=== PATIENT | female | born 1940 | race Caucasian/White ===

== ENCOUNTER 2016-08-12 10:49 | Emergency (ER) | payer OTHER, MEDICARE ==
[2016-08-12 11:13] VITALS: BMI 26.6
[2016-08-12] MEDS ORDERED: SODIUM CHLORIDE 0.9% 1000 ML INFUS.BAG IV ONE (11:16)
--- NOTE | 2016-08-12 11:27 | PDOC ---
History of Present Illness - General Chief Complaint: Lightheaded Stated Complaint: LIGHTHEADED FOR 3 DAYS AFTER HAVING CAT SCAN WITH Time Seen by Provider: 08/12/16 11:13 Past History - Past Medical History Allergies/Adverse Reactions: Allergies Allergy/AdvReac Type Severity Reaction Status Date / Time formaldehyde Allergy Intermediate Hives Verified 08/12/16 10:53 BIRD FEATHERS Allergy Intermediate Uncoded 08/12/16 10:56 CATS Allergy Intermediate Hives Uncoded 08/12/16 10:55 SEAFOOD Allergy Intermediate Hives Uncoded 08/12/16 10:55 Home Medications: Ambulatory Orders Warfarin Sodium [Coumadin] 2.5 mg PO DAILY 09/15/13 Multivitamin [Multi Vitamin Daily] 1 each PO DAILY tablet 09/21/13 Biotin 2,500 mcg PO 2 daily capsule 09/16/14 Cholecalciferol (Vitamin D3) [Vitamin D3] 1,000 unit PO DAILY tablet 09/16/14 Glucosamine/Chondro Mohan A [Cosamin Ds Tablet] 2 each PO DAILY tablet 09/16/14 Cephalexin Monohydrate [Keflex -] 500 mg PO Q8H #21 capsule 08/12/16 Cardiac Disorders: Yes (MECHANICAL VALVE,COARCTATION OF AORTA,AORTIC ANEURYSM) HTN: Yes Other medical history: blind in left eye - Surgical History Cardiac Surgery: Yes (VALVE,AORTA) - Psycho/Social/Smoking Cessation Hx Anxiety: No Suicidal Ideation: No Smoking History: Never smoked Information on smoking cessation initiated: No Hx Alcohol Use: Yes (wine daily) Drug/Substance Use Hx: No Substance Use Type: Alcohol Review of Systems - Review of Systems Constitutional: No: Chills, Diaphoresis, Fever HEENTM: No: Eye Pain Respiratory: No: Cough, Orthopnea, Shortness of Breath Cardiac (ROS): Yes: Lightheadedness. No: Chest Pain, Edema, Irregular Heart Rate, Palpitations ABD/GI: Yes: Nausea. No: Abdominal Distended, Diarrhea, Poor Appetite, Poor Fluid Intake, Rectal Bleeding : No: Burning, Dysuria, Discharge Musculoskeletal: No: Back Pain All Other Systems: Reviewed and Negative *Physical Exam - Vital Signs Last Vital Signs Temp Pulse Resp BP Pulse Ox 98.3 F 104 H 16 126/69 95 08/12/16 10:50 08/12/16 10:50 08/12/16 10:50 08/12/16 10:50 08/12/16 10:50 - Physical Exam General Appearance: Yes: Nourished, Appropriately Dressed. No: Apparent Distress HEENT: positive: SHOAIB, Normal Voice Respiratory/Chest: positive: Chest Tender, Lungs Clear. negative: Normal Breath Sounds, Respiratory Distress Cardiovascular: positive: Regular Rhythm, Regular Rate, S1, S2. negative: Edema , JVD, Murmur Gastrointestinal/Abdominal: positive: Normal Bowel Sounds, Flat, Soft. negative : Tender, Guarding, Tenderness Musculoskeletal: positive: Normal Inspection. negative: CVA Tenderness Extremity: positive: Normal Capillary Refill, Normal Inspection, Normal Range of Motion. negative: Pedal Edema, Swelling Integumentary: positive: Normal Color, Dry, Warm. 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 cant visualize) 08/12/16 11:27 left axis, TWI I, AVL. LVH. LBBB ( old) - ECG Intrepretation Rhythm: Regular Rhythm ED Treatment Course - LABORATORY CBC & Chemistry Diagram: 08/12/16 11:25 08/12/16 11:25 - RADIOLOGY Radiology Studies Ordered: Category Date Time Status CHEST PA & LAT [RAD] Stat Radiology 08/12/16 11:16 Ordered Medical Decision Making - Medical Decision Making 08/12/16 11:22 76 yo F with ho HTN, ( jesús coarct aorta) s/p aortic repair years ago and AVR on coumadin, here today c/o feeling lighteaded. pt states had a ct angio coronaries last week and has been feeling lightheaded ever since. no v, mild nausea yesterday. no cp no sob. no vertigo. describes feeling lightheaded wtih standing improves with sitting down. no f/c no urinary complaints. no palpitations. been eating ok. no new medicaton changes. on lisinopril/ hctz, and coumadin. 08/12/16 11:27 76 yo F with h/o aortic repair for anuerysm, aortic valve replacement and coarc aorta, on coumadin with lightheadedness. differential: renal failure secondary to ct contrast. coagulapathy from coumadin, anemia, electrolyte abnormality dehydration . plan d/w pt polysomnographer if able to reach. dr Randy gambino., labs ekg cbc pt/ ptt iv hydration reassess. 08/12/16 13:32 pt with elevated WBC 22, no prior known luekocytosis. no fever to suggest infection. no cough congestion or resp symptoms. no cp or sob. no urinary symptoms mild luek esterase in urine. noel culture urine and start on keflex. pt informed will need repeat WBC and close followup. Dr Loc dumont, ( covering for Yeny Murillo) awaiting call back) *DC/Admit/Observation/Transfer Diagnosis at time of Disposition: Lightheadedness, Urinary tract infection, Leukocytosis - Discharge Dispostion Disposition: HOME Condition at time of disposition: Stable Admit: No - Prescriptions Prescriptions: Cephalexin Monohydrate [Keflex -] 500 mg PO Q8H #21 capsule - Referrals Referrals: August Copeland MD [Staff Physician] - - Patient Instructions Printed Discharge Instructions: DI for Leukocytosis, Urinary Tract Infection Additional Instructions: follow up wtih DR Murillo this week. call tomorrow to schedule. return for any feelings of chest pain, shortness of breath, fever or any concerns. you will need a repeat blood test for elevated WBC count of 22. you should also have your coumadin ( INR) checked again as the antiobiotic will affect metabolism of the coumadin. take keflex 500 mg three times daily x 7 days.
[2016-08-12 11:50] LABS: MCH 29.5 pg (25.7-33.7); MEAN CELL VOLUME 86.6 fl (80-96); MEAN PLT VOLUME 8.3 fl (7.5-11.1); PLATELET COUNT 402 K/MM3 (134-434); RDW 13.1 % (11.6-15.6); WHITE BLOOD COUNT 22.4 K/mm3 (4.0-10.8)
[2016-08-12 11:54] LABS: ALBUMIN 3.4 g/dl (3.5-5.0); ALK PHOS 49 U/L (32-92); ANION GAP 11 (8-16); BILIRUBIN,TOTAL 0.9 mg/dl (0.2-1.0); CALCIUM 9.5 mg/dl (8.4-10.2); CO2 27 mmol/L (22-28); GLUCOSE,RANDOM 125 mg/dl (74-106); SGOT/AST 19 U/L (10-42); SGPT/ALT 14 U/L (10-40); TOT PROT 6.5 g/dl (6.4-8.3)
[2016-08-12 12:08] LABS: ACTIVATED PTT 27.7 SECONDS (24.0-38.9)
[2016-08-12 12:12] LABS: INR 2.64 (0.82-1.09)
[2016-08-12 12:33] LABS: URINE APPEARANCE Clear; URINE BILIRUBIN Negative (NEGATIVE); URINE BLOOD Trace-intact (NEGATIVE); URINE GLUCOSE (UA) Negative (NEGATIVE); URINE KETONE 1+ (NEGATIVE); URINE NITRITE Negative (NEGATIVE); URINE UROBILINOGEN 1.0 E.U/dl (0.2-1.0)
[2016-08-12 12:55] LABS: URINE COLOR YELLOW; URINE LEUK ESTERASE TRACE (NEGATIVE); URINE PROTEIN 1+ (NEGATIVE)
[2016-08-12] MEDS ORDERED: CEPHALEXIN MONOHYDRATE 500 MG CAPSULE (UD) PO ONE (13:34)
[2016-08-12 13:52] LABS: PLATELET ESTIMATE SLT INCREASED (NORMAL)
[2016-08-12 13:53] LABS: URINE BACTERIA RARE /hpf (NEGATIVE); URINE RBC 0-2 /hpf (0-3)
[2016-08-12] MEDS ORDERED: CEPHALEXIN MONOHYDRATE 500 MG CAPSULE (UD) ONE (14:04)
[2016-08-12 14:14] VITALS: BP 121/69; PULSE 83; TEMP 98.6
--- NOTE | 2016-08-12 16:24 | EKG ---
Test Reason : Blood Pressure : / mmHG Vent. Rate : 092 BPM Atrial Rate : 092 BPM P-R Int : 208 ms QRS Dur : 130 ms QT Int : 388 ms P-R-T Axes : 072 -56 088 degrees QTc Int : 479 ms NORMAL SINUS RHYTHM LEFT AXIS DEVIATION LEFT VENTRICULAR HYPERTROPHY WITH QRS WIDENING AND REPOLARIZATION ABNORMALITY CANNOT RULE OUT ANTEROSEPTAL INFARCT , AGE UNDETERMINED ABNORMAL ECG NO PREVIOUS ECGS AVAILABLE Confirmed by SALOME DAVE, MARKO ([id number]) on 08/12/2016 4:24:31 PM Referred By: DAGO VÁSQUEZ Confirmed By:MARKO MCMAHON MD
== END 2016-08-12 14:38 | disposition home or self-care (01) ==
LOC: FER 10:49
DX: R42 Dizziness and giddiness (principal); N39.0 Urinary tract infection, site not specified; D72.829 Elevated white blood cell count, unspecified; I10 Essential (primary) hypertension; H54.42 Blindness, left eye, normal vision right eye; I51.9 Heart disease, unspecified
CPT/HCPCS: 36415; 71020-TC; 80053; 81003; 81015; 85025; 85610; 85730; 87040; 87086; 93005; 99284-25

== ENCOUNTER 2018-07-03 11:03 | Emergency (ER) | payer OTHER, MEDICARE ==
[2018-07-03 11:24] VITALS: TEMP 98; BMI 25.5
--- NOTE | 2018-07-03 11:36 | PDOC ---
History of Present Illness - General Chief Complaint: Hemoptysis Stated Complaint: COUGHING UP BLOOD Time Seen by Provider: 07/03/18 11:34 History Source: Patient Exam Limitations: No Limitations - History of Present Illness Initial Comments: 07/03/18 11:36 78y hx of htn, afib, sp mecanical valve replacement, AAA repair on coumadin presents with complaint of hemopyysis. Patient was in her usual state of health until this morning when she coughed up a blood clot. pt denies any other assciated symptoms including sob, cough, carlton, cp, leg swelling, n/v, abd pain, back pain, lightheadedness, frequent bleeding, bpr, melena. Pt has been having her INR checked and was found to be elevated recently to 4.5 and had her coumadin level changed via her PMD. pt denies any recent changes inher diet or new med changes beside the coumadin change. PMD: Dr Gray Past History - Past Medical History Allergies/Adverse Reactions: Allergies Allergy/AdvReac Type Severity Reaction Status Date / Time formaldehyde Allergy Intermediate Hives Verified 07/03/18 11:05 BIRD FEATHERS Allergy Intermediate Uncoded 07/03/18 11:05 CATS Allergy Intermediate Hives Uncoded 07/03/18 11:05 SEAFOOD Allergy Intermediate Hives Uncoded 07/03/18 11:05 Home Medications: Ambulatory Orders Multivitamin [Multi Vitamin Daily] 1 each PO DAILY tablet 09/21/13 Cholecalciferol (Vitamin D3) [Vitamin D3] 1,000 unit PO DAILY tablet 09/16/14 Glucosamine/Chondro Mohan A [Cosamin Ds Tablet] 2 each PO DAILY tablet 09/16/14 Warfarin Sodium [Coumadin] 2.5 mg PO DAILY 07/03/18 Cardiac Disorders: Yes (MECHANICAL VALVE,COARCTATION OF AORTA,AORTIC ANEURYSM) COPD: No HTN: Yes - Surgical History Cardiac Surgery: Yes (VALVE,AORTA) - Suicide/Smoking/Psychosocial Hx Smoking History: Never smoked Information on smoking cessation initiated: No Hx Alcohol Use: No Drug/Substance Use Hx: No Substance Use Type: Alcohol Review of Systems - Review of Systems Able to Perform ROS?: Yes Comments:: 07/03/18 12:05 Constitutional - no reported Fever, Chills, HEENT: no reported vision changes, sore throat Respiratory: + hemopytiss no reported cough, sob, Cardiac: no reported chest pain, palpitations, light headedness, leg swelling Abd/GI: no reported abd pain, nausea, vomiting, blood per rectum, melena, diarrhea : no reported dysuria, frequency, discharge Musculskelatal - no reported back pain, joint swelling skin - no reported bruising, erythema, rash neurological: no reported headache, numbness, focal weakness, tingling, ataxia, hematologic: no reported easy bruising, easy bleeding *Physical Exam - Vital Signs Last Vital Signs Temp Pulse Resp BP Pulse Ox 98 F 108 H 16 163/97 98 07/03/18 11:04 07/03/18 11:04 07/03/18 11:04 07/03/18 11:04 07/03/18 11:04 - Physical Exam Comments: 07/03/18 12:05 GENERAL: The patient is awake, alert, and fully oriented, Nontoxic - in no acute distress. HEAD: Normocephalic, atraumatic. EYES: extraocular movements intact, sclera anicteric, conjunctiva clear. ENT: Normal voice, Moist mucous membranes. NECK: Normal range of motion, supple LUNGS: Breath sounds equal, clear to auscultation bilaterally. No wheezes, no rhonchi, no rales. HEART: Regular rate and rhythm, click on asuculatation ABDOMEN: Soft, nontender, normoactive bowel sounds. No guarding, no rebound. . No CVA tenderness EXTREMITIES: Normal range of motion, no edema. No clubbing or cyanosis. No cords, erythema, or tenderness. NEUROLOGICAL: No facial assymetry, Normal speech, PSYCH: Normal mood, normal affect. SKIN: Warm, Dry, normal turgor, Heart Score/ECG Review - ECG Impressions Comment:: 07/03/18 12:07 Twelve-lead EKG was performed and reviewed by me. There is normal sinus rhythm with a normal rate. rate of 88 1s tdegere av block left axis devaition LBBB ED Treatment Course - LABORATORY CBC & Chemistry Diagram: 07/03/18 12:01 07/03/18 12:01 Medical Decision Making - Medical Decision Making 07/03/18 12:09 heymptysis possily secondary to elevated INR no other respiraotory or cardiac symptoms will obtani labs, repeat INR, cxr, ekg will reassess and carol gray 07/03/18 13:18 pts cxr clear labs reviewed INR therapeutic pt remains asymptomatic will carol gray 07/03/18 15:33 r/o 07/03/18 15:50 ct nnegative pt feels well no further episodes of hemoptysis pt asypmtromana currently will have her fu with pmd for inr check I discussed the physical exam findings, ancillary test results and final diagnoses with the patient. I answered all of the patient's questions. The patient was satisfied with the care received and felt comfortable with the discharge plan and treatment plan. The patient will call their primary care physician within 24 hours to arrange follow-up and will return to the Emergency Department with any new, persistent or worsening symptoms. *DC/Admit/Observation/Transfer Diagnosis at time of Disposition: Hemoptysis, Long-term (current) use of anticoagulants, INR goal 2.5-3.5 - Discharge Dispostion Disposition: HOME Condition at time of disposition: Improved Decision to Admit order: No - Referrals Referrals: Krzysztof Randall MD [Primary Care Provider] - - Patient Instructions Printed Discharge Instructions: DI for Hemoptysis Additional Instructions: I suspect you rcough may be related to your elevated INR. Your xray was normal. If you have any chest pain, shortness of breath or further bleeding please return to the Emergency Department for further evaluation. Print Language: DANISH - Post Discharge Activity
[2018-07-03 12:10] LABS: BASO % 0.4 % (0-2.0); EOS % 1.2 % (0-4.5); HEMATOCRIT 40.7 % (32.4-45.2); HEMOGLOBIN 13.5 GM/dl (10.7-15.3); LYMPH % 29.7 % (8-40); MCH 29.5 pg (25.7-33.7); MCHC 33.1 g/dl (32.0-36.0); MEAN PLT VOLUME 7.8 fl (7.5-11.1); MONO % 4.9 % (3.8-10.2); NEUT % 63.8 % (42.8-82.8); PLATELET COUNT 329 K/MM3 (134-434); RBC 4.57 M/mm3 (3.60-5.2); RDW 13.9 % (11.6-15.6); WHITE BLOOD COUNT 9.1 K/mm3 (4.0-10.8)
[2018-07-03 12:15] LABS: INR 2.73 (0.82-1.09)
[2018-07-03 12:19] LABS: ALBUMIN 3.7 g/dl (3.4-5.0); ALK PHOS 61 U/L (45-117); ANION GAP 8 MMOL/L (8-16); BILIRUBIN,TOTAL 0.6 mg/dl (0.2-1); BLOOD UREA NITROGEN 26 mg/dl (7-18); CALCIUM 9.2 mg/dl (8.5-10); CHLORIDE 101 mmol/L (98-107); CO2 26 mmol/L (21-32); CREATININE 0.8 mg/dl (0.55-1.3); GLUCOSE,RANDOM 116 mg/dl (74-106); POTASSIUM 3.6 mmol/L (3.5-5.1); SGOT/AST 23 U/L (15-37); SGPT/ALT 13 U/L (13-61); SODIUM 135 mmol/L (136-145); TOT PROT 7.2 g/dl (6.4-8.2)
[2018-07-03 13:26] LABS: N-TERMINAL BNP 715.8 pg/ml (5-450)
[2018-07-03] MEDS ORDERED: SODIUM CHLORIDE 500 ML IV STA (13:48)
[2018-07-03 15:49] VITALS: BP 151/80; PULSE 80
--- NOTE | 2018-07-04 11:29 | EKG ---
Test Reason : Blood Pressure : / mmHG Vent. Rate : 088 BPM Atrial Rate : 088 BPM P-R Int : 220 ms QRS Dur : 128 ms QT Int : 422 ms P-R-T Axes : 085 -50 087 degrees QTc Int : 510 ms SINUS RHYTHM WITH 1ST DEGREE A-V BLOCK LEFT AXIS DEVIATION LEFT BUNDLE BRANCH BLOCK ABNORMAL ECG Confirmed by ANISH VALVERDE MD ([id number]) on 07/04/2018 11:29:16 AM Referred By: GLENNA METCALF Confirmed By:ANISH VALVERDE MD
== END 2018-07-03 16:07 | disposition home or self-care (01) ==
LOC: FER 11:03
PROC: 3E0337Z Introduction of Electrolytic and Water Balance Substance into Peripheral Vein, Percutaneous Approach (ICD-10-PCS; principal; 2018-07-03)
DX: R04.2 Hemoptysis (principal); Z79.01 Long term (current) use of anticoagulants; I10 Essential (primary) hypertension; I71.9 Aortic aneurysm of unspecified site, without rupture
CPT/HCPCS: 36415; 71046-TC-FY; 71275-TC; 74175-TC; 80053; 83880; 85025; 85610; 93005; 99283-25

== ENCOUNTER 2018-08-26 18:47 | Emergency (ER) | payer OTHER, MEDICARE | END 2018-08-26 21:18 | disposition home or self-care (01) | LOC: FER 18:47 ==

== ENCOUNTER 2018-11-01 12:31 | Emergency (ER) | payer OTHER, MEDICARE ==
--- NOTE | 2018-11-01 12:36 | PDOC ---
History of Present Illness - General Chief Complaint: Lightheaded Stated Complaint: DIZZINESS Time Seen by Provider: 11/01/18 12:33 History Source: Patient Exam Limitations: No Limitations - History of Present Illness Initial Comments: 11/01/18 16:49 78F pmh Ao coarctation s/p repair, Ao aneursym s/p repair, AV replacement, HTN presenting after an episode of lightheadedness diaphoresis, and nausea while sitting and watching TV. Episode lasted a few minutes w/o LOC. Pt states the room was not warm. Denies chest pain, palpitations, sob, changes in vision/ hearing, numbness/tingling, diarrhea, dysuria, f/c. Currently asymptomatic. PMH: as above, blind in left eye Allergies to formaldehyde Denies tobacco use; wine w/ dinner Past History - Past Medical History Allergies/Adverse Reactions: Allergies Allergy/AdvReac Type Severity Reaction Status Date / Time formaldehyde Allergy Intermediate Hives Verified 08/26/18 18:50 BIRD FEATHERS Allergy Intermediate Uncoded 08/26/18 18:50 CATS Allergy Intermediate Hives Uncoded 08/26/18 18:50 SEAFOOD Allergy Intermediate Hives Uncoded 08/26/18 18:50 Home Medications: Ambulatory Orders Multivitamin [Multi Vitamin Daily] 1 each PO DAILY tablet 09/21/13 Cholecalciferol (Vitamin D3) [Vitamin D3] 1,000 unit PO DAILY tablet 09/16/14 Glucosamine/Chondro Mohan A [Cosamin Ds Tablet] 2 each PO DAILY tablet 09/16/14 Warfarin Na [Coumadin] 2.5 mg PO ASDIR 08/26/18 Calcium PO BID 11/01/18 Multivit/Folic Acid/Vit K1 [One-A-Day Women's 50 Plus Tab] 1 each PO DAILY 11/01 Cardiac Disorders: Yes (MECHANICAL VALVE,COARCTATION OF AORTA,AORTIC ANEURYSM) COPD: No HTN: Yes - Surgical History Cardiac Surgery: Yes (VALVE,AORTA) - Suicide/Smoking/Psychosocial Hx Smoking History: Never smoked Hx Alcohol Use: Yes (WINE) Drug/Substance Use Hx: No Substance Use Type: Alcohol Review of Systems - Review of Systems Able to Perform ROS?: Yes Comments:: 11/01/18 16:49 CONSTITUTIONAL: Denies F / C HEENT: Denies headache, changes in vision / hearing, diplopia, blurry vision. Denies sore throat, rhinorrhea. RESP: Denies SOB, cough, CARD: Denies chest pain, palpitations GI: Denies V / D, abdominal pain, bloody stool, inability to tolerate PO : Denies dysuria, NEURO: Denies numbness, tingling, weakness Is the patient limited Mozambican proficient: No *Physical Exam - Physical Exam Comments: 11/01/18 16:51 GEN: Well appearing, NAD, comfortable. AAOx3 HEENT: NC/AT, EOMI, PERRLA. CN II-XII grossly intact. No facial asymmetry. Normal voice. Supple neck w/ FROM. CV: S1/S2, RRR, systolic murmur LUNG: CTAB, no wheezes, crackles, rales, rhonchi. GI: soft, ndnt, +BS, no guarding, no rebound. Neg CVAT b/l. No masses. EXTREMITIES: No LE edema. No obvious deformities of all extremities. SKIN: warm, dry, normal turgor PSYCH: normal mood and affect NEURO: Moving all extremities well; ambulates well. 5/5 bicep/tricep/financial investment adviser strength b/l. 5/5 UE strength b/l. 5/5 LE strength b/l. Sensation symmetric and intact throughout. ED Treatment Course - LABORATORY CBC & Chemistry Diagram: 11/01/18 13:20 11/01/18 13:20 Medical Decision Making - Medical Decision Making 11/01/18 13:16 78F w/ significant cardiac hx presenting after a brief self resolving episode of lightheadedness, diaphoresis, and nausea. ROS otherwise negative, no LOC. Neurologically intact on exam, VS wnl, exam benign. Given cardiac hx, must consider paroxysmal arrhythmias, ACS. Could be vasovagal or occult UTI. Unlikely PE due to normal VS, no SOB, on AC. Unlikely orthostatic or dehydration since patient was sitting, has been adequately eating and drinking, w/o fluid loss, and VS wnl. Unlikely valve malfunction considering non-widened pulse pressures. - CBC, CMP, cardiac, coags - UA/UC - EKG, CXR 11/01/18 13:43 CXR report as follows: Chest: Dizziness. Cough. 2 views of the chest and abdomen submitted. There is a large heart, unfolded aorta, sternal sutures some of which are broken, posterior mediastinal clips, normal neva and posterior calcification in the heart. Could this calcification being in a valve? The lungs are clear. The angles are sharp and the soft tissues are intact. There are degenerative changes with some minimal vertebral wedging. Correlation recommended. Since 08/27/2019 there is no change of an adverse nature. 11/01/18 13:49 Therapeutic INR There is no UTI EKG showed LBBB unchanged from previous on record. 11/01/18 16:48 2nd trop neg., given that the symptoms self resolved and were not severe, will discharge home with return precautions and close cardiology and PCP follow up. *DC/Admit/Observation/Transfer Diagnosis at time of Disposition: Lightheaded - Discharge Dispostion Disposition: HOME Condition at time of disposition: Good Decision to Admit order: No - Referrals Referrals: Krzysztof Randall MD [Primary Care Provider] - - Patient Instructions Additional Instructions: Follow up with your Primary Care Doctor regarding this visit in the next 3-5 days. 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 Return to the Emergency Department immediately if you experience any of the following: - recurrence of your symptoms - fainting, seizures, loss of sensation or motor function - chest pain, palpitations, shortness of breath - ANYTHING that concerns you - Post Discharge Activity
[2018-11-01 12:56] VITALS: BMI 25.4
[2018-11-01 13:35] LABS: BASO % 0.4 % (0-2.0); HEMOGLOBIN 13.5 GM/dl (10.7-15.3); LYMPH % 20.7 % (8-40); MCHC 33.6 g/dl (32.0-36.0); MEAN CELL VOLUME 89.1 fl (80-96); MEAN PLT VOLUME 8.2 fl (7.5-11.1); MONO % 4.9 % (3.8-10.2); PLATELET COUNT 362 K/MM3 (134-434); RBC 4.49 M/mm3 (3.60-5.2); RDW 13.9 % (11.6-15.6); WHITE BLOOD COUNT 10.6 K/mm3 (4.0-10.8)
[2018-11-01 13:39] LABS: INR 2.95 (0.82-1.09); PROTHROMBIN TIME (PATIENT) 32.3 SEC (10.2-13.0)
[2018-11-01 13:46] LABS: ALBUMIN 3.8 g/dl (3.4-5.0); BILIRUBIN,TOTAL 0.8 mg/dl (0.2-1); CALCIUM 9.7 mg/dl (8.5-10); POTASSIUM 4.4 mmol/L (3.5-5.1); TOT PROT 7.5 g/dl (6.4-8.2)
--- NOTE | 2018-11-01 13:49 | PDOC ---
Attending Attestation - Resident Resident Name: JuanJian - ED Attending Attestation I have performed the following: I have examined & evaluated the patient, The case was reviewed & discussed with the resident, I agree w/resident's findings & plan, Exceptions are as noted - HPI HPI: 11/01/18 13:42 78 F with h/o HTN, afib, coarctation of aorta s/p repair, AVR on coumadin, presenting to ED with transient episode of dizziness. Pt states that she was sitting at home approx 2 hours ago when she suddenly felt "dizzy". Pt denies room-spinning sensation but also denies feeling lightheaded/faint. The episode was associated with diaphoresis and nausea but no vomiting. Pt denies CP/SOB. Denies abdominal pain. Pt states that the entire episode lasted about 3 minutes before resolving spontaneously. Pt now has no complaints. - Physicial Exam PE: 11/01/18 13:49 "GENERAL: Awake, alert, and fully oriented, in no acute distress. HEAD: No signs of trauma EYES: PERRLA, EOMI, sclera anicteric, conjunctiva clear ENT: Auricles normal inspection, hearing grossly normal, nares patent, oropharynx clear without exudates. Moist mucosa NECK: Nontender, no stepoffs, Normal ROM, supple, no lymphadenopathy, JVD, or masses LUNGS: Breath sounds equal, clear to auscultation bilaterally. No wheezes, and no crackles HEART: Regular rate and rhythm, normal S1 and S2, no murmurs, rubs or gallops ABDOMEN: Soft, nontender, normoactive bowel sounds. No guarding, no rebound. No masses EXTREMITIES: Normal range of motion, no edema. No clubbing or cyanosis. No cords, erythema, or tenderness NEUROLOGICAL: Cranial nerves II through XII intact. 5/5 strength and sensation in all extremities, Normal speech, normal gait, normal cerebellar function SKIN: Warm, Dry, normal turgor, no rashes or lesions noted. - Medical Decision Making 11/01/18 13:50 78 F with transient episode of "dizziness" associated with nausea and diaphoresis. Will r/o ACS with serial trops. EKG with LBBB unchanged since prior EKG. Pt with no neuro deficits to suggest CVA/TIA. Possible paroxysmal arrhythmia, but no evidence of arrhythmia on EKG. Pt denies ever having lightheadedness/palpitations. Will r/o infectious process with CXR/UA. - Labs, trops - CXR, UA 11/01/18 16:43 Labs wnl Trop negative x2 Pt reassessed - continues to feel well with no complaints Pt is well appearing, with normal vitals. Clinically stable for DC at this time. I discussed the physical exam findings, ancillary test results and final diagnoses with the patient. I answered all of the patient's questions. The patient was satisfied with the care received and felt comfortable with the discharge plan and treatment plan. The patient agrees to follow up with the primary care physician within 24-72 hours.
[2018-11-01] MEDS ORDERED: SODIUM CHLORIDE 0.9% 500 ML INFUS.BAG IV ONE (13:59)
[2018-11-01 14:21] VITALS: TEMP 98.2
[2018-11-01 16:46] VITALS: BP 163/68; PULSE 68
--- NOTE | 2018-11-02 11:48 | EKG ---
Test Reason : Blood Pressure : / mmHG Vent. Rate : 078 BPM Atrial Rate : 078 BPM P-R Int : 218 ms QRS Dur : 130 ms QT Int : 448 ms P-R-T Axes : 080 -56 087 degrees QTc Int : 510 ms SINUS RHYTHM WITH 1ST DEGREE A-V BLOCK LEFT AXIS DEVIATION LEFT BUNDLE BRANCH BLOCK ABNORMAL ECG WHEN COMPARED WITH ECG OF 03-JUL-2018 11:53, NO SIGNIFICANT CHANGE WAS FOUND Confirmed by GLORIA DAVE, KINGSTON ([id number]) on 11/02/2018 11:48:23 AM Referred By: ALVARO GREER Confirmed By:KINGSTON CASTRO MD
== END 2018-11-01 16:57 | disposition home or self-care (01) ==
LOC: FER 12:31
PROC: 3E0337Z Introduction of Electrolytic and Water Balance Substance into Peripheral Vein, Percutaneous Approach (ICD-10-PCS; principal; 2018-11-01)
DX: R42 Dizziness and giddiness (principal); I10 Essential (primary) hypertension
CPT/HCPCS: 36415; 71046-TC-FY; 80053; 81003; 82550; 84484; 85025; 85610; 85730; 87086; 93005; 99285-25

== ENCOUNTER 2019-03-28 09:42 | Emergency (ER) | payer OTHER, MEDICARE ==
[2019-03-28 10:00] VITALS: BP 127/73; PULSE 84; TEMP 97.6; BMI 25.4
--- NOTE | 2019-03-28 10:19 | PDOC ---
History of Present Illness - General Chief Complaint: Respiratory Stated Complaint: COUGH Time Seen by Provider: 03/28/19 10:09 - History of Present Illness Initial Comments: 03/28/19 10:20 Chief complaint: Cough HPI: Nasal congestion and nonproductive cough for several days, but appears to be improving. Came to the emergency room at the request of her daughter, who wanted her to be checked. Review of systems: Denies fever/chills, chest pain, shortness of breath, abdominal pain, nausea, vomiting, diarrhea, body aches, malaise, fatigue. Past medical history: Cardiac surgery for structural abnormalities including coarctation of the aorta, thoracic aortic aneurysm, and aortic valve insufficiency. No known coronary artery disease. No known pulmonary disease Social/family history: Reviewed and noncontributory. Non-smoker Physical exam: Alert and oriented x3, well-developed well-nourished, appears younger than her age, no acute distress, cheerful and cooperative Afebrile, vital signs normal including normal respiratory rate and oxygen saturation HEENT: Mild nasal congestion, watery discharge, postnasal drip. Neck supple without bruit mass or nodes Lungs clear bilaterally, full breath sounds without wheezes rales or rhonchi. No tachypnea or dyspnea, or other sign of respiratory distress CV regular without murmur rub or gallop. There is a loud click from her mechanical aortic valve. Pulses full and symmetric. No JVD or edema. Abdomen soft nontender without mass organomegaly Skin clear, no rash, adequate turgor and wet mucous membranes Extremities no CCE Neurological intact. Gait stable and unimpaired Impression: Viral URI, postnasal drip, which is stimulating the cough. Lungs are clear. No sign of bronchitis or pneumonia Plan: Rest, symptomatic treatment, return to ER if fever or other signs of lung involvement develop, otherwise follow-up primary physician as directed. Fully ambulatory in no distress upon discharge with her daughter to follow-up as directed Past History - Past Medical History Allergies/Adverse Reactions: Allergies Allergy/AdvReac Type Severity Reaction Status Date / Time formaldehyde Allergy Intermediate Hives Verified 03/28/19 09:49 BIRD FEATHERS Allergy Intermediate Uncoded 03/28/19 09:49 CATS Allergy Intermediate Hives Uncoded 03/28/19 09:49 SEAFOOD Allergy Intermediate Hives Uncoded 01/18/20 09:49 Home Medications: Ambulatory Orders Multivitamin [Multi Vitamin Daily] 1 each PO DAILY tablet 09/21/13 Cholecalciferol (Vitamin D3) [Vitamin D3] 1,000 unit PO DAILY tablet 09/16/14 Glucosamine/Chondro Mohan A [Cosamin Ds Tablet] 2 each PO DAILY tablet 09/16/14 Warfarin Na [Coumadin] 2.5 mg PO ASDIR 08/26/18 Cardiac Disorders: Yes (MECHANICAL VALVE,COARCTATION OF AORTA,AORTIC ANEURYSM, AFIB) COPD: No HTN: Yes - Surgical History Cardiac Surgery: Yes (VALVE,AORTA) - Psycho Social/Smoking Cessation Hx Smoking History: Never smoked Have you smoked in the past 12 months: No Information on smoking cessation initiated: No Hx Alcohol Use: (wine nightly) Drug/Substance Use Hx: No Substance Use Type: Alcohol *Physical Exam - Vital Signs Last Vital Signs Temp Pulse Resp BP Pulse Ox 97.6 F 84 18 127/73 99 03/28/19 09:42 03/28/19 09:42 03/28/19 09:42 03/28/19 09:42 03/28/19 09:42 Discharge - Discharge Information Problems reviewed: Yes Clinical Impression/Diagnosis: Viral URI with cough Condition: Stable Disposition: HOME - Admission No - Follow up/Referral - Patient Discharge Instructions Patient Printed Discharge Instructions: DI for Viral Upper Respiratory Infection -- Adult Additional Instructions: Rest, fluids, Tylenol as needed. Plain Robitussin for cough. Return to ER immediately if there is fever/chills, chest pain, or shortness of breath. Otherwise follow-up with your family physician in 2 to 3 days. - Post Discharge Activity
== END 2019-03-28 10:25 | disposition home or self-care (01) ==
LOC: FER 09:42
DX: J06.9 Acute upper respiratory infection, unspecified (principal); R05 Cough; B97.89 Other viral agents as the cause of diseases classified elsewhere; Z91.013 Allergy to seafood; J30.81 Allergic rhinitis due to animal (cat) (dog) hair and dander; Z88.8 Allergy status to other drugs, medicaments and biological substances; I10 Essential (primary) hypertension; I51.9 Heart disease, unspecified
CPT/HCPCS: 99282-25